=== PATIENT | female | born 1955 | race Caucasian/White ===

== ENCOUNTER → 2016-08-30 | Outpatient (CLI) | payer BC ==
--- NOTE | 2016-09-02 09:53 | MM ---
Reason for exam: screening (asymptomatic). Last mammogram was performed 1 year and 5 months ago. History: Patient is postmenopausal. Family history of premenopausal breast cancer in sister. Benign stereotactic core biopsy of the left breast, November 19, 1999. Core biopsy of the left breast. Physical Findings: A clinical breast exam by your physician is recommended on an annual basis and results should be correlated with mammographic findings. MG Screening Mammo w CAD Bilateral CC and MLO view(s) were taken. Prior study comparison: April 13, 2015, bilateral MG screening mammo w CAD. August 27, 2013, bilateral digital screening mammo w/CAD. The breast tissue is heterogeneously dense. This may lower the sensitivity of mammography. There is chronic nodularity bilaterally. No significant changes when compared with prior studies. ASSESSMENT: Benign, BI-RAD 2 RECOMMENDATION: Routine screening mammogram of both breasts in 1 year.
== END | disposition home or self-care (01) ==
LOC: RADMAMWWP 10:47
PROVIDERS: ATTEND Obstetrics & Gynecology
DX: Z12.31 Encounter for screening mammogram for malignant neoplasm of breast (principal); Z80.3 Family history of malignant neoplasm of breast

== ENCOUNTER 2017-06-27 08:28 | Day surgery (SDC) | payer BC ==
[2017-06-25 10:30] VITALS: BMI 21.2
[~2017-06-27 08:28] MED LIST: LACTATED RINGERS 1,000 ML IV SCH
[2017-06-27 08:43] VITALS: RESP 16; TEMP 98.6
[2017-06-27] MEDS ORDERED: LIDOCAINE 1% 20 ML VIAL (10MG/ML) FOR IV START INTRADERMA ONE (08:43)
[2017-06-27] MEDS ORDERED: PROPOFOL 10 MG/ML 20 ML VIAL IV ONE (09:21)
--- NOTE | 2017-06-27 09:39 | P.PCN ---
Date of Procedure: 06/27/17 Procedure(s) Performed: BRIEF HISTORY: Patient is a 61-year-old pleasant White female, scheduled for an elective colonoscopy as a part of screening for colon neoplasia. PROCEDURE PERFORMED: Colonoscopy. PREOPERATIVE DIAGNOSIS: Screening for colon cancer. IV sedation per Anesthesia. PROCEDURE: After informed consent was obtained, the patient, was brought into the endoscopy unit. IV sedation was administered by Anesthesia under continuous monitoring. Digital rectal examination was normal. Initially the Olympus CF- 160 flexible video colonoscope was then inserted in the rectum, gradually advanced into the cecum without any difficulty. Careful examination was performed as the scope was gradually being withdrawn. Ileocecal valve and the appendiceal orifice were visualized and appeared normal. Prep was excellent. Mucosa of the cecum, ascending colon, transverse colon, descending colon, sigmoid colon, and rectum appeared normal. Retroflexion was performed in the rectum and no lesions were seen. The patient tolerated the procedure well. IMPRESSION: Normal-appearing colon from rectum to cecum no evidence of colorectal neoplasia.. RECOMMENDATIONS: Findings of this examination were discussed with the patient as well as a family. she was advised to have a repeat screening colonoscopy in 10 years..
[2017-06-27 10:07] VITALS: BP 116/68; PULSE 59
== END 2017-06-27 10:28 | disposition home or self-care (01) ==
LOC: ORWHC2ENDO 08:28
PROVIDERS: ATTEND Internal Medicine Gastroenterology
DX: Z12.11 Encounter for screening for malignant neoplasm of colon (principal)
CPT/HCPCS: J2704; G0121

== ENCOUNTER → 2017-09-26 | Outpatient (CLI) | payer BC ==
[2017-09-26 21:40] LABS: Basophils % (A) 0 %; Eosinophils # (A) 0.1 k/uL (0-0.7); Eosinophils % (A) 1 %; HCT 41.3 % (34.0-46.0); HGB 13.2 gm/dL (11.4-16.0); Lymphocytes # (A) 1.2 k/uL (1.0-4.8); Lymphocytes % (A) 17 %; MCH 29.4 pg (25.0-35.0); MCV 91.9 fL (80.0-100.0); Mean Platelet Volume 8.1; Monocytes # (A) 0.4 k/uL (0-1.0); Monocytes % (A) 6 %; Neutrophils # (A) 5.3 k/uL (1.3-7.7); Neutrophils % (A) 75 %; Platelet Count 319 k/uL (150-450); RDW 12.8 % (11.5-15.5); WBC 7.1 k/uL (3.8-10.6)
[2017-09-26 21:46] LABS: ALT 40 U/L (9-52); AST 44 U/L (14-36); Albumin 4.7 g/dL (3.5-5.0); Alkaline Phosphatase 67 U/L (38-126); Amylase 76 U/L (30-110); Anion Gap 14 mmol/L; Blood Urea Nitrogen 16 mg/dL (7-17); Calcium 10.1 mg/dL (8.4-10.2); Carbon Dioxide 27 mmol/L (22-30); Chloride 97 mmol/L (98-107); Glucose 90 mg/dL (74-99); Lipase 285 U/L (23-300); Potassium 4.5 mmol/L (3.5-5.1); Sodium 138 mmol/L (137-145); Total Bilirubin 0.4 mg/dL (0.2-1.3); Total Protein 7.2 g/dL (6.3-8.2)
== END | disposition home or self-care (01) ==
LOC: MMGSC 15:14
PROVIDERS: ATTEND Family Medicine
DX: R19.7 Diarrhea, unspecified (principal); R10.9 Unspecified abdominal pain
CPT/HCPCS: 36415; 80053; 82150; 83690; 85025

== ENCOUNTER → 2018-03-09 | Outpatient (CLI) | payer BC ==
--- NOTE | 2018-03-10 09:49 | MM ---
Reason for exam: screening (asymptomatic). Last mammogram was performed 1 year and 6 months ago. History: Patient is postmenopausal. Family history of premenopausal breast cancer in sister. Benign stereotactic core biopsy of the left breast, November 19, 1999. Core biopsy of the left breast. Physical Findings: A clinical breast exam by your physician is recommended on an annual basis and results should be correlated with mammographic findings. MG 3D Screening Mammo W/Cad Bilateral CC and MLO view(s) were taken. Prior study comparison: August 30, 2016, bilateral MG screening mammo w CAD. April 13, 2015, bilateral MG screening mammo w CAD. The breast tissue is heterogeneously dense. This may lower the sensitivity of mammography. Finding #1: There is a 9mm equal architectural distortion in the outer quadrant of the left breast. Finding #2: There are typically benign calcifications in the right breast. Previous mammotome biopsy in the left breast. ASSESSMENT: Incomplete: need additional imaging evaluation, BI-RAD 0 RECOMMENDATION: Special view mammogram of the left breast. If lesion persists on supplemental views, image directed ultrasound is recommended. [facility] will attempt to contact patient to return for supplemental views and ultrasound if indicated.
== END | disposition home or self-care (01) ==
LOC: RADMAMWWP 10:43
PROVIDERS: ATTEND Obstetrics & Gynecology
DX: Z12.31 Encounter for screening mammogram for malignant neoplasm of breast (principal); Z80.3 Family history of malignant neoplasm of breast
CPT/HCPCS: 77063; 77067

== ENCOUNTER → 2018-03-11 | Outpatient (CLI) | payer BC ==
--- NOTE | 2018-03-11 11:49 | MM ---
Reason for exam: additional evaluation requested from abnormal screening. Last mammogram was performed less than 1 month ago. History: Patient is postmenopausal. Family history of premenopausal breast cancer in sister. Benign stereotactic core biopsy of the left breast, November 19, 1999. Core biopsy of the left breast. Physical Findings: Nurse did not find any significant physical abnormalities on exam. MG 3D Work Up W/Cad LT Spot compression CC and LM view(s) were taken of the left breast. Prior study comparison: March 09, 2018, bilateral MG 3d screening mammo w/cad. August 30, 2016, bilateral MG screening mammo w CAD. The breast tissue is heterogeneously dense. This may lower the sensitivity of mammography. Previous mammotome biopsy in the left breast. The questioned asymmetry laterally disperses on additional views. Chronic nodularity superiorly. These results were verbally communicated with the patient and result sheet given to the patient on 03/11/18. ASSESSMENT: Negative, BI-RAD 1 RECOMMENDATION: Return to routine screening mammogram schedule for both breasts.
== END | disposition home or self-care (01) ==
LOC: RADMAMWWP 10:48
PROVIDERS: ATTEND Obstetrics & Gynecology
DX: R92.8 Other abnormal and inconclusive findings on diagnostic imaging of breast (principal)
CPT/HCPCS: 77061; 77065

== ENCOUNTER → 2020-04-18 | Outpatient (CLI) | payer MEDICARE ==
--- NOTE | 2020-04-19 13:25 | MM ---
Reason for exam: screening (asymptomatic). Last mammogram was performed 2 years and 1 month ago. History: Patient is postmenopausal. Family history of premenopausal breast cancer in sister. Benign stereotactic core biopsy of the left breast, November 19, 1999. Core biopsy of the left breast. Physical Findings: A clinical breast exam by your physician is recommended on an annual basis and results should be correlated with mammographic findings. MG 3D Screening Mammo W/Cad Bilateral CC and MLO view(s) were taken. Prior study comparison: March 11, 2018, left breast MG 3d work up w/cad LT. March 09, 2018, bilateral MG 3d screening mammo w/cad. The breast tissue is heterogeneously dense. This may lower the sensitivity of mammography. Anterior superior subareolar left MLO asymmetric density unchanged from the 2018 exam. No significant changes when compared with prior studies. ASSESSMENT: Benign, BI-RAD 2 RECOMMENDATION: Routine screening mammogram of both breasts in 1 year.
== END | disposition home or self-care (01) ==
LOC: RADMAMWWP 15:42
PROVIDERS: ATTEND Family Medicine
DX: Z12.31 Encounter for screening mammogram for malignant neoplasm of breast (principal)
CPT/HCPCS: 77063; 77067

== ENCOUNTER → 2020-06-08 | Outpatient (CLI) | payer MEDICARE ==
--- NOTE | 2020-06-08 20:49 | BD ---
EXAMINATION TYPE: Axial Bone Density DATE OF EXAM: 06/08/2020 COMPARISON: 08/27/2013 CLINICAL HISTORY: Disorder of bone. Postmenopausal female. Height: 62.7 IN Weight: 130 LBS FRAX RISK QUESTIONS: History of Fracture in Adulthood: LT WRIST AGE 59; LT HAND AGE 59 RISK FACTORS HISTORY OF: History of Wrist Fracture: LT WRIST AGE 59 Active: YES Postmenopausal woman: AGE 52 MEDICATIONS: Additional Medications: MULTI VIT, CALCIUM, COD LIVER OIL, EXAM MEASUREMENTS: Bone mineral densitometry was performed using the [employer] System. Bone mineral density as measured about the Lumbar spine is: ----- L1-L4(G/cm2): 1.004 T Score Values are as follows: ----- L2: -1.6 ----- L3: -1.4 ----- L4: -1.6 ----- L1-L4: -1.5 Bone mineral density has: Decreased -2.3% since study of: 08/27/2013 Bone mineral density about the R hip (g/cm2): 0.744 Bone mineral density about the L hip (g/cm2): 0.800 T Score values are as follows: -----R Neck: -2.1 -----L Neck: -1.7 -----R Total: -2.2 -----L Total: -1.9 Bone mineral density has: Decreased -7.0% since study of: 08/27/2013 IMPRESSION: Osteopenia remains present (T Score between -2.5 and -1). Bone density decreased or diminished from p rior. There remains slightly increased risk of fracture and the patient may be considered for treatment. Re-Screen 2-5 years. NOTE: T-SCORE=SD OF THE YOUNG ADULT MEAN.
== END | disposition home or self-care (01) ==
LOC: RADBDWWP 07:12
PROVIDERS: ATTEND Family Medicine
DX: M85.88 Other specified disorders of bone density and structure, other site (principal)
CPT/HCPCS: 77080

== ENCOUNTER → 2021-09-19 | Outpatient (CLI) | payer MEDICARE, OTHER ==
--- NOTE | 2021-09-21 09:48 | MM ---
Reason for exam: screening (asymptomatic). Last mammogram was performed 1 year and 5 months ago. History: Patient is postmenopausal. Family history of breast cancer in daughter at age 35 and premenopausal breast cancer in sister. Benign stereotactic core biopsy of the left breast, November 19, 1999. Core biopsy of the left breast. Physical Findings: A clinical breast exam by your physician is recommended on an annual basis and results should be correlated with mammographic findings. MG 3D Screening Mammo W/Cad Bilateral CC and MLO view(s) were taken. Prior study comparison: April 18, 2020, bilateral MG 3d screening mammo w/cad. March 09, 2018, bilateral MG 3d screening mammo w/cad. Finding: There are grouped/clustered calcifications in the right breast. Previous mammotome biopsy in the left breast. ASSESSMENT: Incomplete: need additional imaging evaluation, BI-RAD 0 RECOMMENDATION: Special view mammogram of the right breast. [facility] will attempt to contact patient to return for supplemental views.
== END | disposition home or self-care (01) ==
LOC: RADMAMWWP 09:57
PROVIDERS: ATTEND Family Medicine
DX: Z12.31 Encounter for screening mammogram for malignant neoplasm of breast (principal); Z78.0 Asymptomatic menopausal state; Z80.3 Family history of malignant neoplasm of breast
CPT/HCPCS: 77063; 77067

== ENCOUNTER → 2021-09-25 | Outpatient (CLI) | payer MEDICARE, OTHER ==
--- NOTE | 2021-09-26 09:06 | MM ---
Reason for exam: additional evaluation requested from abnormal screening. Last mammogram was performed less than 1 month ago. History: Patient is postmenopausal. Family history of breast cancer in daughter at age 35 and premenopausal breast cancer in sister. Benign stereotactic core biopsy of the left breast, November 19, 1999. Core biopsy of the left breast. Physical Findings: A clinical breast exam by your physician is recommended on an annual basis and results should be correlated with mammographic findings. MG 3D Work Up W/Cad RT Spot compression CC, spot compression LM, and LM view(s) were taken of the right breast. Prior study comparison: September 19, 2021, bilateral MG 3d screening mammo w/cad. April 18, 2020, bilateral MG 3d screening mammo w/cad. Finding: There are intermediate concern, suspicious, fine, grouped/clustered calcifications in the middle position of the right breast. New finding since September 19, 2021 and April 18, 2020. Results were given to the patient verbally at the time of the exam. ASSESSMENT: Suspicious, BI-RAD 4 RECOMMENDATION: Stereotactic core biopsy of the right breast. (right breast calcifications) Called Dr. Gu's office with mammographic findings and has scheduled an appointment for the patient for 10/19/21 at 7:[address] Brush. Biopsy scheduled for 10/19/21 at 8:00. PRELIMINARY REPORT CALLED AND FAXED TO DR. BRUSH ON 09/26/21.
== END | disposition home or self-care (01) ==
LOC: RADMAMWWP 13:30
PROVIDERS: ATTEND Family Medicine
DX: R92.8 Other abnormal and inconclusive findings on diagnostic imaging of breast (principal)
CPT/HCPCS: 77065; G0279; 77061

== ENCOUNTER → 2021-10-19 | Day surgery (SDC) | payer MEDICARE, OTHER ==
[2021-10-19 07:12] VITALS: TEMP 98.2
--- NOTE | 2021-10-19 07:50 | P.GSHP ---
History of Present Illness H&P Date: 10/19/21 Chief Complaint: Abnormal right breast mammogram Valentine is a 65-year-old white female who underwent a bilateral screening mammogram on 1321. Some calcifications of concern were identified in the right breast and [place] [id number]. This revealed intermediate concern suspicious finding group cluster calcifications in the middle position of the right breast. Stereotactic core biopsy was recommended. She was seen in concert dictation for Dr. Gu. The patient has had a prior left breast are detected core biopsy in November 1999 which was benign. Patient has not noted any lumps masses or nodules of concern in either breast. She does not complain of any nipple discharge or skin changes. She has not had any recent trauma or infection of the breast. Caffiene: 2 cups coffee in am nicotine: none chocolate: several times/week BCP: none hormones: none Family history: Breast cancer and daughter at age 35; double mastectomy, only cancer one side; metastatic cancer Sister: Premenopausal breast cancer; double mastectomy only one side cancer father: brain cancer mother: stomach cancer Hormonal History: menarche: 13 , breast fed: yes, age at first : 18 menopause: 3o BCP:none hormone: none Surgical history: Right hand trigger finger repair Bone shaving on toe on the left foot Medical History: none Social history: Nicotine: Negative Alcohol: Occasional Drugs:none - Constitutional Constitutional: Denies chills, Denies fever - EENT Eyes: denies blurred vision, denies pain Ears: deny: decreased hearing, tinnitus Ears, nose, mouth and throat: Denies headache, Denies sore throat - Breasts Breasts: bilateral: as per HPI - Cardiovascular Cardiovascular: Denies chest pain, Denies shortness of breath - Respiratory Respiratory: Denies cough, Denies 7 - Gastrointestinal Gastrointestinal: Denies abdominal pain, Denies diarrhea, Denies nausea, Denies vomiting - Genitourinary (Female) Genitourinary: Denies dysuria, Denies hematuria - Menstruation Menstruation: Reports postmenopausal - Musculoskeletal Musculoskeletal: Denies myalgias - Integumentary Integumentary: Denies pruritus, Denies rash - Neurological Neurological: Denies numbness, Denies weakness - Psychiatric Psychiatric: Denies anxiety, Denies depression - Endocrine Endocrine: Denies fatigue, Denies weight change - Hematologic/Lymphatic Comment: none - Allergic/Immunologic Allergic/Immunologic: Reports as per HPI Past Medical History Additional Past Medical History / Comment(s): irregular bowel movements, History of Any Multi-Drug Resistant Organisms: None Reported Past Surgical History: Orthopedic Surgery Additional Past Surgical History / Comment(s): trigger finger rt middle finger, bone spur left great toe, Past Anesthesia/Blood Transfusion Reactions: Motion Sickness Past Psychological History: No Psychological Hx Reported Smoking Status: Former smoker Past Alcohol Use History: Occasional Past Drug Use History: None Reported - Past Family History Mother Family Medical History: Cancer Father Family Medical History: Cancer Daughter(s) Family Medical History: Cancer, Deep Vein Thrombosis (DVT) Medications and Allergies Home Medications Medication Instructions Recorded Confirmed Type No Known Home Medications 10/19/21 10/19/21 History Allergies Allergy/AdvReac Type Severity Reaction Status Date / Time No Known Allergies Allergy Verified 10/19/21 07:03 Surgical - Exam Vital Signs Temp Pulse Resp BP 98.2 F 74 13 134/81 10/19/21 07:04 10/19/21 07:04 10/19/21 07:04 10/19/21 07:04 BMI 22.7 - General no distress - Eyes normal ocular movement - Neck trachea midline - Respiratory normal respiratory effort, clear to auscultation - Cardiovascular Rhythm: regular Heart Sounds: normal: S1, S2 - Abdomen Abdomen: soft - Integumentary normal turgor - Neurologic no disoriented, no combative - Musculoskeletal normal gait - Psychiatric oriented to time, oriented to person, oriented to place, speech is normal, memory intact Breast examination: BRA: 34B inspection: Bilateral grade 2 ptosis Palpation: Right breast: Multi-positional exam dense breast no dominant masses or nodules of concern, fibrocystic changes Right axilla: No adenopathy of concern Left breast: Multi-positional exam dense breast fibrocystic changes no dominant masses or nodules of concern Left axilla: No adenopathy of concern Results Mammogram reviewed with radiology Assessment and Plan Assessment: Impression: Microcalcifications of concern right breast Fibrocystic breast changes Positive family history of breast cancer Plan: Stereotactic core biopsy right breast Follow-up after stereotactic core biopsy Risk and benefits of the procedure discussed with the patient and her . Risks include but are not limited to bleeding, infection, reaction to the anesthetic. Additionally if the area of concern cannot be visualized that the procedure would most likely be aborted. The patient understands and wishes to proceed. Cc: Dr. Gu
--- NOTE | 2021-10-19 08:41 | P.PCN ---
Date of Procedure: 10/19/21 Preoperative Diagnosis: Abnormal right breast mammogram Postoperative Diagnosis: Same/microcalcifications mid right breast Procedure(s) Performed: Stereotactic core biopsy right breast Anesthesia: local Surgeon: Giuliana Brush Pathology: other (Breast tissue/radiograph reveals microcalcifications of concern are present) Condition: stable Disposition: same day Indications for Procedure: Microcalcifications of concern mid right breast Operative Findings: Radiographic specimen reveals microcalcifications of concern are present Description of Procedure: The patient is a 65-year-old white female who on a routine screening mammogram was noted to have microcalcifications of concern in the midportion of her right breast. Diagnostic mammogram confirm these. Stereotactic core biopsy was recommended. Risks and benefits of the procedure were discussed with the patient. Alternatives were also discussed. Alternatives were watchful waiting a resection in the operating room and neither was recommended. After risk and benefits were discussed the patient wished to proceed with the procedure. The patient was taken to stereotactic core biopsy wound. She was positioned prone on the lo-rad table. A loss prevention representative film was obtained. The area of concern was identified. The lesion was targeted. A lateral to medial approach was utilized. The breast was prepped using Betadine. 25 mL of 1% lidocaine were used to anesthetize the area of concern. A 9-gauge vacuum-assisted core rotating biopsy needle was driven to the correct coordinates. Prefire films were obtained. The needle was noted to be in the correct location. The needle was fired. Post fire films were obtained and the needle was noted to be in the correct location. 14 core specimens were obtained. Radiograph of the specimens revealed the microcalcifications of concern had been obtained. The area was lavaged. After we were assured that hemostasis was attained a secure andreas Top Hat clip was placed. Radiograph post procedure revealed the clip to be in the correct location. The patient tolerated the procedure in stable condition. The specimen was sent to pathology. The patient will follow-up with Dr. Bianchi next week.
[2021-10-19 08:48] VITALS: BP 130/81; PULSE 57; RESP 12
--- NOTE | 2021-10-19 10:08 | MM ---
The patient is a 65-year-old white female who on a routine screening mammogram was noted to have microcalcifications of concern in the midportion of her right breast. Diagnostic mammogram confirm these. Stereotactic core biopsy was recommended. Risks and benefits of the procedure were discussed with the patient. Alternatives were also discussed. Alternatives were watchful waiting a resection in the operating room and neither was recommended. After risk and benefits were discussed the patient wished to proceed with the procedure. The patient was taken to stereotactic core biopsy room. She was positioned prone on the lo-rad table. A facilities mechanical design engineer film was obtained. The area of concern was identified. The lesion was targeted. A lateral to medial approach was utilized. The breast was prepped using Betadine. 25 mL of 1% lidocaine were used to anesthetize the area of concern. A 9-gauge vacuum-assisted core rotating biopsy needle was driven to the correct coordinates. Prefire films were obtained. The needle was noted to be in the correct location. The needle was fired. Post fire films were obtained and the needle was noted to be in the correct location. 14 core specimens were obtained. Radiograph of the specimens revealed the microcalcifications of concern had been obtained. The area was lavaged. After we were assured that hemostasis was attained a secure andreas Top Hat clip was placed. Radiograph post procedure revealed the clip to be in the correct location. The patient tolerated the procedure in stable condition. The specimen was sent to pathology. The patient will follow-up with Dr. Bianchi next week. NAKUL
== END ==
LOC: RADMAMWWP 06:45
PROVIDERS: ATTEND Surgery
DX: N60.11 Diffuse cystic mastopathy of right breast (principal); N60.81 Other benign mammary dysplasias of right breast; Z80.3 Family history of malignant neoplasm of breast; Z87.891 Personal history of nicotine dependence
CPT/HCPCS: 19081; 88305; A4648; J2001

== ENCOUNTER → 2021-10-19 | Outpatient (CLI) | payer MEDICARE, OTHER ==
[2021-10-19 07:40] VITALS: BP 126/82; PULSE 63; RESP 17; TEMP 98.7
== END ==
LOC: WWCWWP 06:43
PROVIDERS: ATTEND Surgery
DX: Z53.9 Procedure and treatment not carried out, unspecified reason (principal)

== ENCOUNTER → 2022-04-23 | Outpatient (CLI) | payer MEDICARE, OTHER ==
--- NOTE | 2022-04-23 09:52 | MM ---
Reason for Exam: Follow-up at short interval from prior study. Last screening mammogram was performed 7 month(s) ago. Patient History: Menarche at age 11. First Full-Term at age 18. Postmenopausal. Patient has history of breast feeding. Core Biopsy on the Left side. 10/19/2021, Benign MG stereo VAD BX RT on the right side. 11/19/1999, Benign Stereotactic Core Biopsy on the left side. Sister had breast cancer. Daughter had breast cancer, age 35. Risk Values: Brianna 5 year model risk: 10.2%. NCI Lifetime model risk: 29.4%. Prior Study Comparison: 07/22/2011 Bilateral Screening Mammogram, [facility]. 08/27/2013 Bilateral Screening Mammogram, [facility]. 04/13/2015 Bilateral Screening Mammogram, [facility]. 08/30/2016 Bilateral Screening Mammogram, [facility]. 03/09/2018 Bilateral Screening Mammogram, [facility]. 03/11/2018 Left Diagnostic Mammogram, [facility]. 04/18/2020 Bilateral Screening Mammogram, [facility]. 09/19/2021 Bilateral Screening Mammogram, [facility]. 09/25/2021 Right Diagnostic Mammogram, [facility]. Tissue Density: Right: The breast tissue is heterogeneously dense. This may lower the sensitivity of mammography. Findings: Analyzed By CAD. No new suspicious mass or worrisome cluster microcalcifications within the right breast. Benign-appearing round calcifications demonstrated. Biopsy clip demonstrated within the right breast. Overall Assessment: Benign, BI-RAD 2 Management: Screening Mammogram of both breasts in 6 months. A clinical breast exam by your physician is recommended on an annual basis and results should be correlated with mammographic findings. This exam should not preclude additional follow-up of suspicious palpable abnormalities. Results were given to the patient verbally at the time of exam. Electronically signed and approved by: Andrea Khan D.O.
== END | disposition home or self-care (01) ==
LOC: RADMAMWWP 09:23
PROVIDERS: ATTEND Surgery
DX: R92.8 Other abnormal and inconclusive findings on diagnostic imaging of breast (principal); Z78.0 Asymptomatic menopausal state; Z80.3 Family history of malignant neoplasm of breast
CPT/HCPCS: 77065; G0279; 77061

== ENCOUNTER → 2022-04-26 | Outpatient (CLI) | payer MEDICARE, OTHER ==
[2022-04-26 12:53] VITALS: BP 129/69; PULSE 58; RESP 16; TEMP 97.8
--- NOTE | 2022-04-26 13:27 | P.PN ---
Subjective Progress Note Date: 04/26/22 Principal diagnosis: fibrocystic breast changes Valentine is a 65-year-old white female who underwent a bilateral screening mammogram on 1321. Some calcifications of concern were identified in the right breast and she underwent a right diagnostic mammogram [place] [id number]. This r evealed intermediate concern suspicious finding group cluster calcifications in the middle position of the right breast. Stereotactic core biopsy was recommended. She was seen in concert dictation for Dr. Gu. The patient has had a prior left breast are detected core biopsy in November 1999 which was benign. Patient has not noted any lumps masses or nodules of concern in either [address] She does not complain of any nipple discharge or skin changes. She has not had any recent trauma or infection of the breast. 04-26-22 The patient had a stero-biopsy on 10-19-21 which was benign concordant. She had a repeat right breast mammogram on 04-23-22 which was BIRAD 2. Set complaining of any new lumps masses or nodules of concern in either breast. Caffiene: 2 cups coffee in am nicotine: none chocolate: several times/week BCP: none hormones: none Family history: Breast cancer and daughter at age 35; double mastectomy, only cancer one side; metastatic cancer Sister: Premenopausal breast cancer; double mastectomy only one side cancer father: brain cancer mother: stomach cancer Hormonal History: menarche: 13 , breast fed: yes, age at first : 18 menopause: 5o BCP:none hormone: none Surgical history: Right hand trigger finger repair Bone shaving on toe on the left foot Medical History: none Social history: Nicotine: Negative Alcohol: Occasional Drugs:none - Constitutional Constitutional: Denies chills, Denies fever - EENT Eyes: denies blurred vision, denies pain Ears: deny: decreased hearing, tinnitus Ears, nose, mouth and throat: Denies headache, Denies sore throat - Breasts Breasts: bilateral: as per HPI - Cardiovascular Cardiovascular: Denies chest pain, Denies shortness of breath - Respiratory Respiratory: Denies cough, Denies 7 - Gastrointestinal Gastrointestinal: Denies abdominal pain, Denies diarrhea, Denies nausea, Denies vomiting - Genitourinary (Female) Genitourinary: Denies dysuria, Denies hematuria - Menstruation Menstruation: Reports postmenopausal - Musculoskeletal Musculoskeletal: Denies myalgias - Integumentary Integumentary: Denies pruritus, Denies rash - Neurological Neurological: Denies numbness, Denies weakness - Psychiatric Psychiatric: Denies anxiety, Denies depression - Endocrine Endocrine: Denies fatigue, Denies weight change - Hematologic/Lymphatic Comment: none - Allergic/Immunologic Allergic/Immunologic: Reports as per HPI Past Medical History Additional Past Medical History / Comment(s): irregular bowel movements, History of Any Multi-Drug Resistant Organisms: None Reported Past Surgical History: Orthopedic Surgery Additional Past Surgical History / Comment(s): trigger finger rt middle finger, bone spur left great toe, Past Anesthesia/Blood Transfusion Reactions: Motion Sickness Past Psychological History: No Psychological Hx Reported Smoking Status: Former smoker Past Alcohol Use History: Occasional Past Drug Use History: None Reported - Past Family History Mother Family Medical History: Cancer Father Family Medical History: Cancer Daughter(s) Family Medical History: Cancer, Deep Vein Thrombosis (DVT) Medications and Allergies Home Medications Medication Instructions Recorded Confirmed Type No Known Home Medications 10/19/21 10/19/21 History Allergies Allergy/AdvReac Type Severity Reaction Status Date / Time No Known Allergies Allergy Verified 10/19/21 07:03 Objective - Vital Signs Vital signs: Vital Signs Temp 97.8 F 04/26/22 12:50 Pulse 58 L 04/26/22 12:50 Resp 16 04/26/22 12:50 BP 129/69 04/26/22 12:50 Pulse Ox 100 04/26/22 12:50 FiO2 Intake & Output 04/25/22 04/26/22 04/26/22 18:59 06:59 18:59 Weight 58.967 kg - Constitutional General appearance: Present: cooperative - EENT Eyes: Present: EOMI ENT: Present: hearing grossly normal - Neck Neck: Present: normal ROM - Respiratory Respiratory: bilateral: CTA - Cardiovascular Rhythm: regular Heart sounds: normal: S1, S2 - Integumentary Integumentary: Present: normal turgor - Musculoskeletal Musculoskeletal: Present: gait normal - Psychiatric Psychiatric: Present: A&O x's 3, appropriate affect, intact judgment & insight - Additional findings Additional findings: Breast examination: BRA: 34B inspection: Bilateral grade 2 ptosis Palpation: Right breast: Multi-positional exam dense breast no dominant masses or nodules of concern, fibrocystic changes Right axilla: No adenopathy of concern Left breast: Multi-positional exam dense breast fibrocystic changes no dominant masses or nodules of concern Left axilla: No adenopathy of concern Assessment and Plan Assessment: Impression: Fibrocystic breast changes Brianna risk evaluation states five-year risk is 10.2%; discussed chemoprevention risk reduction at this time the patient has declined Additionally secondary to family history of sister and daughter with breast cancer will discuss genetic testing and at this time the patient would like to just be followed conservatively Plan: Bilateral mammogram in 6 months with physician exam at that time If patient notes anything of concern she will call us sooner CC: DR. Gu
== END | disposition home or self-care (01) ==
LOC: WWCWWP 12:36
PROVIDERS: ATTEND Surgery
DX: Z53.9 Procedure and treatment not carried out, unspecified reason (principal)

== ENCOUNTER → 2022-10-21 | Outpatient (CLI) | payer MEDICARE, OTHER ==
--- NOTE | 2022-10-21 10:38 | MM ---
Reason for Exam: Follow-up at short interval from prior study. Last mammogram was performed 1 year(s) and 1 month(s) ago. Patient History: Menarche at age 11. First Full-Term at age 18. Postmenopausal. Patient has history of breast feeding. Core Biopsy on the Left side. 10/19/2021, Benign MG stereo VAD BX RT on the right side. 11/19/1999, Benign Stereotactic Core Biopsy on the left side. Sister had breast cancer. Daughter had breast cancer, age 35. Risk Values: Brianna 5 year model risk: 10.2%. NCI Lifetime model risk: 29.4%. Prior Study Comparison: 04/13/2015 Bilateral Screening Mammogram, [facility]. 08/30/2016 Bilateral Screening Mammogram, [facility]. 03/09/2018 Bilateral Screening Mammogram, [facility]. 03/11/2018 Left Diagnostic Mammogram, [facility]. 04/18/2020 Bilateral Screening Mammogram, [facility]. 09/19/2021 Bilateral Screening Mammogram, [facility]. 09/25/2021 Right Diagnostic Mammogram, [facility]. 04/23/2022 Right MG 3D diag mammo w/cad RT, [facility]. Tissue Density: The breast tissue is heterogeneously dense. This may lower the sensitivity of mammography. Findings: Analyzed By CAD. There is symmetrical and stable. Bilateral core markers are present. No suspicious groups of microcalcifications, spiculated or lobular masses, architectural distortion or other secondary signs of malignancy are mammographically apparent. Overall Assessment: Benign, BI-RAD 2 Management: Screening Mammogram of both breasts in 1 year. A negative mammogram report should not preclude additional follow up of suspicious palpable abnormalities. Patient should continue monthly self breast exam. A clinical breast exam by your physician is recommended on an annual basis and results should be correlated with mammographic findings. Electronically signed and approved by: Jun Mosley D.O. Radiologis
== END | disposition home or self-care (01) ==
LOC: RADMAMWWP 09:36
PROVIDERS: ATTEND Surgery
DX: R92.8 Other abnormal and inconclusive findings on diagnostic imaging of breast (principal); Z78.0 Asymptomatic menopausal state; Z80.3 Family history of malignant neoplasm of breast
CPT/HCPCS: 77066; G0279; 77062

== ENCOUNTER → 2022-10-31 | Outpatient (CLI) | payer MEDICARE, OTHER ==
[2022-10-31 10:58] VITALS: BP 173/83; PULSE 73; RESP 16; TEMP 97.8
--- NOTE | 2022-10-31 11:16 | P.PN ---
Subjective Progress Note Date: 10/31/22 Principal diagnosis: fibrocystic breast changes fibrocystic breast changes Valentine is a 66-year-old white female who underwent a bilateral screening mammogram on 1321. Some calcifications of concern were identified in the right breast and she underwent a right diagnostic mammogram on . This revealed intermediate concern suspicious finding group cluster calcifications in the middle position of the right breast. Stereotactic core biopsy was recommended. The patient has had a prior left breast stero tactic core biopsy in November 1999 which was benign. The patient had a stero-biopsy on 10-19-21 which was benign concordant. She had a repeat right breast mammogram on 04-23-22 which was BIRAD 2. She is not complaining of any new lumps masses or nodules of concern in either breast. Bilateral mammogram on 10-21-22 BIRAD 2 Brianna Risk : 10.2 % at 5 years life time risk: 29.4% Discussed chemoprevention and I have given her the option of seeing a medical oncologist to discuss this as well. At this time the patient has declined. Additionally I discussed her lifetime risk of 29.4% and the possibility of getting yearly breast MRIs. Again at this time she has declined. Her daughter had genetic testing and was (-). She is not aware of her sister having genetic testing. Caffiene: 2 cups coffee in am nicotine: none chocolate: several times/week BCP: none hormones: none Family history: Breast cancer: daughter at age 35; double mastectomy, only cancer one side; metastatic cancer Sister: Premenopausal breast cancer; double mastectomy only one side cancer father: brain cancer mother: stomach cancer Hormonal History: menarche: 13 , breast fed: yes, age at first : 18 menopause: 3o BCP:none hormone: none Surgical history: Right hand trigger finger repair Bone shaving on toe on the left foot Medical History: none Social history: Nicotine: Negative Alcohol: Occasional Drugs:none - Constitutional Constitutional: Denies chills, Denies fever - EENT Eyes: denies blurred vision, denies pain Ears: deny: decreased hearing, tinnitus Ears, nose, mouth and throat: Denies headache, Denies sore throat - Breasts Breasts: bilateral: as per HPI - Cardiovascular Cardiovascular: Denies chest pain, Denies shortness of breath - Respiratory Respiratory: Denies cough - Gastrointestinal Gastrointestinal: Denies abdominal pain, Denies diarrhea, Denies nausea, Denies vomiting - Genitourinary (Female) Genitourinary: Denies dysuria, Denies hematuria - Menstruation Menstruation: Reports postmenopausal - Musculoskeletal Musculoskeletal: Denies myalgias - Integumentary Integumentary: Denies pruritus, Denies rash - Neurological Neurological: Denies numbness, Denies weakness - Psychiatric Psychiatric: Denies anxiety, Denies depression - Endocrine Endocrine: Denies fatigue, Denies weight change - Hematologic/Lymphatic Comment: none - Allergic/Immunologic Allergic/Immunologic: Reports as per HPI Past Medical History Additional Past Medical History / Comment(s): irregular bowel movements, History of Any Multi-Drug Resistant Organisms: None Reported Past Surgical History: Orthopedic Surgery Additional Past Surgical History / Comment(s): trigger finger rt middle finger, bone spur left great toe, Past Anesthesia/Blood Transfusion Reactions: Motion Sickness Past Psychological History: No Psychological Hx Reported Smoking Status: Former smoker Past Alcohol Use History: Occasional Past Drug Use History: None Reported - Past Family History Mother Family Medical History: Cancer Father Family Medical History: Cancer Daughter(s) Family Medical History: Cancer, Deep Vein Thrombosis (DVT) Medications and Allergies Home Medications Medication Instructions Recorded Confirmed Type No Known Home Medications 10/19/21 10/19/21 History Allergies Allergy/AdvReac Type Severity Reaction Status Date / Time No Known Allergies Allergy Verified 10/19/21 07:03 Objective - Vital Signs Vital signs: Vital Signs Temp 97.8 F 10/31/22 10:42 Pulse 73 10/31/22 10:42 Resp 16 10/31/22 10:42 BP 173/83 10/31/22 10:42 Pulse Ox 99 10/31/22 10:42 FiO2 Intake & Output 10/30/22 10/31/22 10/31/22 18:59 06:59 18:59 Weight 59.874 kg - Constitutional General appearance: Present: cooperative - EENT Eyes: Present: EOMI ENT: Present: hearing grossly normal - Neck Neck: Present: normal ROM - Respiratory Respiratory: bilateral: CTA - Cardiovascular Rhythm: regular Heart sounds: normal: S1, S2 - Gastrointestinal General gastrointestinal: Present: soft - Integumentary Integumentary: Present: normal turgor - Musculoskeletal Musculoskeletal: Present: gait normal - Psychiatric Psychiatric: Present: A&O x's 3, appropriate affect, intact judgment & insight - Additional findings Additional findings: Breast examination: BRA: 34B inspection: Bilateral grade 3 ptosis Palpation: Right breast: Multi-positional exam dense breast no dominant masses or nodules of concern, fibrocystic changes Right axilla: No adenopathy of concern Left breast: Multi-positional exam dense breast fibrocystic changes no dominant masses or nodules of concern Left axilla: No adenopathy of concern Assessment and Plan Assessment: Impression: Fibrocystic breast changes Rbianna risk evaluation states five-year risk is 10.2%; discussed chemoprevention risk reduction at this time the patient has declined Patient has declined MRI secondary to high lifetime risk of breast cancer Plan: Bilateral mammogram in 12 months with physician exam at that time Physician exam in 6 months for close surveillance If patient notes anything of concern she will call us sooner CC: DR. Gu Additional CC's: Rayna Gu
== END ==
LOC: WWCWWP 10:30
PROVIDERS: ATTEND Surgery
DX: N60.11 Diffuse cystic mastopathy of right breast (principal); Z80.3 Family history of malignant neoplasm of breast; Z87.891 Personal history of nicotine dependence

== ENCOUNTER 2022-12-23 09:55 | Emergency (ER) | payer MEDICARE, OTHER ==
[2022-12-23 10:18] VITALS: RESP 18; TEMP 98
[2022-12-23] MEDS ORDERED: diphenhydrAMINE 50 MG/ML 1 ML VIAL IVP STA (10:36)
[2022-12-23] MEDS ORDERED: FAMOTIDINE 20 MG/2 ML VIAL IV STA (10:36)
[2022-12-23] MEDS ORDERED: SODIUM CHLORIDE 0.9% 500 ML 500 ML IV ONE (10:37)
[2022-12-23] MEDS ORDERED: methylPREDNISolone SOD SUCCI 125 MG/2 ML VIAL IV STA (10:37)
[2022-12-23 10:52] LABS: Basophils % (A) 1 %; Eosinophils # (A) 0.1 k/uL (0-0.7); Eosinophils % (A) 2 %; HGB 14.9 gm/dL (11.4-16.0); Lymphocytes % (A) 14 %; MCH 30.3 pg (25.0-35.0); MCHC 31.8 g/dL (31.0-37.0); MCV 95.5 fL (80.0-100.0); Mean Platelet Volume 7.4; Monocytes # (A) 0.4 k/uL (0-1.0); Monocytes % (A) 6 %; Neutrophils # (A) 5.3 k/uL (1.3-7.7); Neutrophils % (A) 77 %; Platelet Count 300 k/uL (150-450); RBC 4.92 m/uL (3.80-5.40); RDW 13.4 % (11.5-15.5); WBC 6.9 k/uL (3.8-10.6)
[2022-12-23 11:15] LABS: ALT 29 U/L (4-34); African American GFR (CKD) >90 (>60 ml/min/1.73 sqM); Albumin 4.8 g/dL (3.5-5.0); Anion Gap 9 mmol/L; Blood Urea Nitrogen 14 mg/dL (7-17); Calcium 9.4 mg/dL (8.4-10.2); Carbon Dioxide 26 mmol/L (22-30); Chloride 96 mmol/L (98-107); Glucose 90 mg/dL (74-99); Non-African American GFR(CKD) 89 (>60 ml/min/1.73 sqM); Sodium 131 mmol/L (137-145); Total Bilirubin 1.1 mg/dL (0.2-1.3)
[2022-12-23 11:18] LABS: AST 40 U/L (14-36); Alkaline Phosphatase 51 U/L (38-126); Potassium 4.8 mmol/L (3.5-5.1)
--- NOTE | 2022-12-23 12:26 | ED ---
General Adult HPI - General Chief complaint: Skin/Abscess/Foreign Body Stated complaint: bee sting R arm Time Seen by Provider: 12/23/22 10:22 Source: patient, family, RN notes reviewed Mode of arrival: ambulatory Limitations: no limitations - History of Present Illness Initial comments: 67-year-old female with no significant past medical history presents to the emergency department with a chief complaint of right arm swelling. Patient reports that she got stung by me on the dorsal aspect of her hand last night. She reports that she went to bed and woke up with generalized swelling to her forearm and into her elbow. She has not taken Benadryl or steroids prior to arrival. She denies any pain. Denies anticoagulant use, shortness of breath, dyspmea, chest pain. - Related Data Previous Rx's Medication Instructions Recorded Famotidine [Pepcid] 40 mg PO DAILY #7 tablet 12/23/22 diphenhydrAMINE [Benadryl] 50 mg PO QID PRN #20 capsule 12/23/22 predniSONE 50 mg PO DAILY #5 tab 12/23/22 Allergies Allergy/AdvReac Type Severity Reaction Status Date / Time bee venom protein (honey bee) Allergy Swelling Verified 12/23/22 10:18 Review of Systems ROS Statement: Those systems with pertinent positive or pertinent negative responses have been documented in the HPI. ROS Other: All systems not noted in ROS Statement are negative. Past Medical History Additional Past Medical History / Comment(s): irregular bowel movements, History of Any Multi-Drug Resistant Organisms: None Reported Past Surgical History: Orthopedic Surgery Additional Past Surgical History / Comment(s): trigger finger rt middle finger, bone spur left great toe, Past Anesthesia/Blood Transfusion Reactions: Motion Sickness Past Psychological History: No Psychological Hx Reported Smoking Status: Never smoker Past Alcohol Use History: Occasional Past Drug Use History: None Reported - Past Family History Mother Family Medical History: Cancer Father Family Medical History: Cancer Daughter(s) Family Medical History: Cancer, Deep Vein Thrombosis (DVT) General Exam - General Exam Comments Initial Comments: General: Alert, in no acute distress Head: atraumatic normocephalic. Eyes PERRL, EOMI intact, mucous membranes moist Respiratory: Lungs clear to auscultation bilaterally Cardiovascular: Rate regular rate and rhythm Abdominal: Soft without guarding or rebound Extremities: Normal inspection with full range of motion and normal capillary refill, right upper extremity diffuse swelling, although) and full range of motion 2+ radial pulses distal neurovascularly intact Neuroogic: alert and oriented 3, CN II-XII intact, able to ambulate with steady gait Skin: warm dry and intact with normal color Limitations: no limitations Course Vital Signs 12/23/22 12/23/22 10:15 12:41 Temperature 98 F Pulse Rate 62 69 Respiratory 18 18 Rate Blood Pressure 129/76 145/85 O2 Sat by Pulse 98 99 Oximetry - Reevaluation(s) Reevaluation #1: 12/23/22 12:00 patient reevaluated. On laboratory results. Additional imaging ordered Medical Decision Making - Medical Decision Making Was pt. sent in by a medical professional or institution (, PA, CHARGER TESTER, urgent care, hospital, or senior living...) When possible be specific @ -[No] Did you speak to anyone other than the patient for history (EMS, parent, family, police, friend...)? What history was obtained from this source @ -[No] Did you review nursing and triage notes (agree or disagree)? Why? @ -[I reviewed and agree with nursing and triage notes] Were old charts reviewed (outside hosp., previous admission, EMS record, old EKG, old radiological studies, urgent care reports/EKG's, senior living records)? Report findings @ -[No old charts were reviewed] Differential Diagnosis (chest pain, altered mental status, abdominal pain women, abdominal pain men, vaginal bleeding, weakness, fever, dyspnea, syncope, headache, dizziness, GI bleed, back pain, seizure, CVA, palpatations, mental health, musculoskeletal)? @ -[not applicable] EKG interpreted by me (3pts min.). @ -[As above] X-rays interpreted by me (1pt min.). @ -[None done] CT interpreted by me (1pt min.). @ -[None done] U/S interpreted by me (1pt. min.). @ -Right upper arm extremity negative for any evidence of DVT What testing was considered but not performed or refused? (CT, X-rays, U/S, labs)? Why? @ -[None] What meds were considered but not given or refused? Why? @ -[None] Did you discuss the management of the patient with other professionals (professionals i.e. , PA, CHARGER TESTER, lab, RT, psych nurse, director social welfare, bricklayer, teacher, correctional program officer, piano case and bench assembler)? Give summary @ -[No] Was smoking cessation discussed for >3mins.? @ -[No] Was critical care preformed (if so, how long)? @ -[No] Were there social determinants of health that impacted care today? How? (Homelessness, low income, unemployed, alcoholism, drug addiction, transportation, low edu. Level, literacy, decrease access to med. care, retirement, rehab)? @ -[No] Was there de-escalation of care discussed even if they declined (Discuss DNR or withdrawal of care, Hospice)? DNR status @ -[No] What co-morbidities impacted this encounter? (DM, HTN, Smoking, COPD, CAD, Cancer, CVA, ARF, Chemo, Hep., AIDS, mental health diagnosis, sleep apnea, morbid obesity)? @ -[None] Was patient admitted / discharged? Hospital course, mention meds given and route, prescriptions, significant lab abnormalities, going to OR and other pertinent info. @ -Discharged. This is a pleasant 67 year-old male who presents to the emergency department with a chief complaint of right arm swelling. . Patient will thorough history and physical exam performed on the ED. Physical exam is essentially unremarkable. Heart rate regular rate and rhythm, lungs clear to auscultation bilaterally, abdomen soft with generalized tenderness. There are no focal neuro deficits noted upon exam. Patient able to move all extremities freely. Right upper extremity with diffuse generalized swelling to elbow 2+ radial pulses. Patient lab work and imaging performed is essentially unremarkable. Discussed results in detail with the patient verbalized understanding all questions were addressed. She was given solumedrol, benadryl, and pepcid 1 L of IV fluids with symptomatic relief on the emergency department. He is agreeable with the plan for discharge home with return precautions discussed. Patient will be discharged home in stable condition. Patient given a prescription for Bentyl. Case discussed with FRANKLIN Peters who agrees with plan of care Undiagnosed new problem with uncertain prognosis? @ -[No] Drug Therapy requiring intensive monitoring for toxicity (Heparin, Nitro, Insulin, Cardizem)? @ -[No] Were any procedures done? @ -[No] Diagnosis/symptom? @ -R Arm Swelling - Hx of Bee Sting Acute, or Chronic, or Acute on Chronic? @ -Acute Uncomplicated (without systemic symptoms) or Complicated (systemic symptoms)? @ -Uncomplicated Side effects of treatment? @ -[No] Exacerbation, Progression, or Severe Exacerbation? @ -[No] Poses a threat to life or bodily function? How? (Chest pain, [place], [place], pneumonia, PE, COPD, DKA, ARF, appy, cholecystitis, CVA, Diverticulitis, Homicidal, Suicidal, threat to staff... and all critical care pts) @ -Low likelihood - Lab Data Result diagrams: 12/23/22 10:41 12/23/22 10:41 Lab Results 12/23/22 12/23/22 Range/Units 10:41 10:41 WBC 6.9 (3.8-10.6) k/uL RBC 4.92 (3.80-5.40) m/uL Hgb 14.9 (11.4-16.0) gm/dL Hct 47.0 H (34.0-46.0) % MCV 95.5 (80.0-100.0) fL MCH 30.3 (25.0-35.0) pg MCHC 31.8 (31.0-37.0) g/dL RDW 13.4 (11.5-15.5) % Plt Count 300 (150-450) k/uL MPV 7.4 Neutrophils % 77 % Lymphocytes % 14 % Monocytes % 6 % Eosinophils % 2 % Basophils % 1 % Neutrophils # 5.3 (1.3-7.7) k/uL Lymphocytes # 1.0 (1.0-4.8) k/uL Monocytes # 0.4 (0-1.0) k/uL Eosinophils # 0.1 (0-0.7) k/uL Basophils # 0.0 (0-0.2) k/uL Sodium 131 L (137-145) mmol/L Potassium 4.8 (3.5-5.1) mmol/L Chloride 96 L (98-107) mmol/L Carbon Dioxide 26 (22-30) mmol/L Anion Gap 9 mmol/L BUN 14 (7-17) mg/dL Creatinine 0.70 (0.52-1.04) mg/dL Est GFR (CKD-EPI)AfAm >90 (>60 ml/min/1.73 sqM) Est GFR (CKD-EPI)NonAf 89 (>60 ml/min/1.73 sqM) Glucose 90 (74-99) mg/dL Calcium 9.4 (8.4-10.2) mg/dL Total Bilirubin 1.1 (0.2-1.3) mg/dL AST 40 H (14-36) U/L ALT 29 (4-34) U/L Alkaline Phosphatase 51 (38-126) U/L Total Protein 8.0 (6.3-8.2) g/dL Albumin 4.8 (3.5-5.0) g/dL Disposition Clinical Impression: Bee sting allergy, Localized swelling of right upper extremity Disposition: HOME SELF-CARE Condition: Stable Instructions (If sedation given, give patient instructions): Cold Compress or Soak (ED) Additional Instructions: Lucas take medications as prescribed Please return to the ER if worsening symptoms of shortness of breath, dyspnea or cough develop Prescriptions: diphenhydrAMINE [Benadryl] 50 mg PO QID PRN #20 capsule PRN Reason: Allergic Reaction Famotidine [Pepcid] 40 mg PO DAILY #7 tablet predniSONE 50 mg PO DAILY #5 tab Is patient prescribed a controlled substance at d/c from ED?: No Referrals: Rayna Gu MD [Primary Care Provider] - 1-2 days Time of Disposition: 13:07
[2022-12-23 12:44] VITALS: BP 145/85; PULSE 69
--- NOTE | 2022-12-23 12:55 | US ---
EXAMINATION TYPE: US venous doppler duplex UE RT DATE OF EXAM: 12/23/2022 COMPARISON: NONE CLINICAL INDICATION: Female, 67 years old with history of R arm swelling; Right arm swelling from bee sting SIDE PERFORMED: Right Right Arm: Appears negative for DVT IMPRESSION: Grayscale, color doppler, spectral doppler imaging performed of the deep veins of the upper extremiti es. There is normal flow, compressibility and vascular waveforms.
== END 2022-12-23 13:56 | disposition home or self-care (01) ==
LOC: EC 09:55
DX: T63.441A Toxic effect of venom of bees, accidental (unintentional), initial encounter (principal); R22.41 Localized swelling, mass and lump, right lower limb
CPT/HCPCS: 36415; 80053; 85025; 93971; 99284; 96374; 96375 ×2; 96361; J1200; J2930

== ENCOUNTER → 2023-02-05 | Outpatient (CLI) | payer MEDICARE, OTHER ==
--- NOTE | 2023-02-05 10:23 | BD ---
EXAMINATION TYPE: Axial Bone Density DATE OF EXAM: 02/05/2023 CLINICAL HISTORY: 67 years old Female. ICD-10 CODE: M85.88 DISORDER OF BONE Height: 62.5 in Weight: 140 lbs FRAX RISK QUESTIONS: History of Fracture in Adulthood: lt wrist age 59, lt finger age 60 RISK FACTORS HISTORY OF: History of Wrist Fracture: lt wrist fx age 59 Active: yes Postmenopausal woman: age 52 MEDICATIONS: Additional Medications: calcium, vit d, fish oil EXAM MEASUREMENTS: Bone mineral densitometry was performed using the [employer] System. Bone mineral density as measured about the Lumbar spine is: ----- L1-L4(G/cm2): 1.029 T Score Values are as follows: ----- L1: -1.4 ----- L2: -1.2 ----- L3: -0.9 ----- L4: -1.5 ----- L1-L4: -1.3 Z Score Values are as follows: ----- L1: 0.3 ----- L2: 0.5 ----- L3: 0.8 ----- L4: 0.2 ----- L1-L4: 0.4 Bone mineral density has: Increased 2.5% since study of: 06/08/2020 Bone mineral density about the R hip (g/cm2): 0.690 Bone mineral density about the L hip (g/cm2): 0.776 T Score values are as follows: -----R Neck: -2.4 -----L Neck: -1.8 -----R Total: -2.5 -----L Total: -1.8 Z Score values are as follows: -----R Neck: -0.7 -----L Neck: -0.1 -----R Total: -1.1 -----L Total: -0.4 Bone mineral density has: Decreased -2.5% since study of: 06/08/2020 FRAX%s: The graph provided illustrates a 22.3% chance for a major osteoporotic fx and a 5.2% chance f or the hips probability for fx in 10 years time. IMPRESSION: Osteopenia (T Score between -2.5 and -1). There is slightly increased risk of fracture and the patient may be considered for treatment. Re-Screen 2-5 years. NOTE: T-SCORE=SD OF THE YOUNG ADULT MEAN.
== END | disposition home or self-care (01) ==
LOC: RADBDWWP 09:24
PROVIDERS: ATTEND Family Medicine
DX: M85.89 Other specified disorders of bone density and structure, multiple sites (principal)
CPT/HCPCS: 77080

== ENCOUNTER → 2023-04-25 | Outpatient (CLI) | payer MEDICARE, OTHER ==
--- NOTE | 2023-04-25 13:14 | P.PN ---
Subjective Progress Note Date: 04/25/23 fibrocystic breast changes 10-31-22 Valentine is a 66-year-old white female who underwent a bilateral screening mammogram on 1321. Some calcifications of concern were identified in the right breast and she underwent a right diagnostic mammogram on . This revealed intermediate concern suspicious finding group cluster calcifications in the middle position of the right breast. Stereotactic core biopsy was recommended. The patient has had a prior left breast stero tactic core biopsy in November 1999 which was benign. The patient had a stero-biopsy on 10-19-21 which was benign concordant. She had a repeat right breast mammogram on 04-23-22 which was BIRAD 2. She is not complaining of any new lumps masses or nodules of concern in either breast. Bilateral mammogram on 10-21-22 BIRAD 2 Brianna Risk : 10.2 % at 5 years life time risk: 29.4% Discussed chemoprevention and I have given her the option of seeing a medical oncologist to discuss this as well. At this time the patient has declined. Additionally I discussed her lifetime risk of 29.4% and the possibility of getting yearly breast MRIs. Again at this time she has declined. Her daughter had genetic testing and was (-). She is not aware of her sister having genetic testing. 04-25-23 The patient is not complaining of any new lumps masses or nodules of concern in either breast. Caffiene: 2 cups coffee in am nicotine: none chocolate: several times/week BCP: none hormones: none Family history: Breast cancer: daughter at age 35; double mastectomy, only cancer one side; metastatic cancer Sister: Premenopausal breast cancer; double mastectomy only one side cancer father: brain cancer mother: stomach cancer Hormonal History: menarche: 13 , breast fed: yes, age at first : 18 menopause: 5o BCP:none hormone: none Surgical history: Right hand trigger finger repair Bone shaving on toe on the left foot Medical History: none Social history: Nicotine: Negative Alcohol: Occasional Drugs:none - Constitutional Constitutional: Denies chills, Denies fever - EENT Eyes: denies blurred vision, denies pain Ears: deny: decreased hearing, tinnitus Ears, nose, mouth and throat: Denies headache, Denies sore throat - Breasts Breasts: bilateral: as per HPI - Cardiovascular Cardiovascular: Denies chest pain, Denies shortness of breath - Respiratory Respiratory: Denies cough - Gastrointestinal Gastrointestinal: Denies abdominal pain, Denies diarrhea, Denies nausea, Denies vomiting - Genitourinary (Female) Genitourinary: Denies dysuria, Denies hematuria - Menstruation Menstruation: Reports postmenopausal - Musculoskeletal Musculoskeletal: Denies myalgias - Integumentary Integumentary: Denies pruritus, Denies rash - Neurological Neurological: Denies numbness, Denies weakness - Psychiatric Psychiatric: Denies anxiety, Denies depression - Endocrine Endocrine: Denies fatigue, Denies weight change - Hematologic/Lymphatic Comment: none - Allergic/Immunologic Allergic/Immunologic: Reports as per HPI Past Medical History Additional Past Medical History / Comment(s): irregular bowel movements, History of Any Multi-Drug Resistant Organisms: None Reported Past Surgical History: Orthopedic Surgery Additional Past Surgical History / Comment(s): trigger finger rt middle finger, bone spur left great toe, Past Anesthesia/Blood Transfusion Reactions: Motion Sickness Past Psychological History: No Psychological Hx Reported Smoking Status: Former smoker Past Alcohol Use History: Occasional Past Drug Use History: None Reported - Past Family History Mother Family Medical History: Cancer Father Family Medical History: Cancer Daughter(s) Family Medical History: Cancer, Deep Vein Thrombosis (DVT) Medications and Allergies Home Medications Medication Instructions Recorded Confirmed Type No Known Home Medications 10/19/21 10/19/21 History Allergies Allergy/AdvReac Type Severity Reaction Status Date / Time No Known Allergies Allergy Verified 10/19/21 07:03 Objective - Constitutional General appearance: Present: cooperative - EENT Eyes: Present: EOMI ENT: Present: hearing grossly normal - Neck Neck: Present: normal ROM - Respiratory Respiratory: bilateral: CTA - Cardiovascular Rhythm: regular Heart sounds: normal: S1, S2 - Gastrointestinal General gastrointestinal: Present: soft - Integumentary Integumentary: Present: normal turgor - Musculoskeletal Musculoskeletal: Present: gait normal - Psychiatric Psychiatric: Present: A&O x's 3, appropriate affect, intact judgment & insight - Additional findings Additional findings: Breast examination: BRA: 34B inspection: Bilateral grade 3 ptosis Palpation: Right breast: Multi-positional exam dense breast no dominant masses or nodules of concern, fibrocystic changes Right axilla: No adenopathy of concern Left breast: Multi-positional exam dense breast fibrocystic changes no dominant masses or nodules of concern Left axilla: No adenopathy of concern Assessment and Plan Assessment: Impression: Fibrocystic breast changes Brianna risk evaluation states five-year risk is 10.2%; discussed chemoprevention risk reduction at this time the patient has declined Patient has declined MRI secondary to high lifetime risk of breast cancer Plan: Bilateral mammogram in 5 months, October 2023 with physician exam at that time If patient notes anything of concern she will call us sooner CC: DR. Gu Additional CC's: Rayna Gu
== END ==
LOC: WWCWWP 11:36
PROVIDERS: ATTEND Surgery
DX: N60.11 Diffuse cystic mastopathy of right breast (principal); Z80.3 Family history of malignant neoplasm of breast; Z87.891 Personal history of nicotine dependence; Z91.030 Bee allergy status

== ENCOUNTER → 2023-10-24 | Outpatient (CLI) | payer MEDICARE, OTHER ==
--- NOTE | 2023-10-28 11:08 | MM ---
Reason for Exam: Screening (asymptomatic). Last screening mammogram was performed 12 month(s) ago. Patient History: Menarche at age 11. First Full-Term at age 18. Postmenopausal. Patient has history of breast feeding. Core Biopsy on the Left side. 10/19/2021, Benign MG stereo VAD BX RT on the right side. 11/19/1999, Benign Stereotactic Core Biopsy on the left side. Sister had breast cancer, age 35. Daughter had breast cancer, age 35. Risk Values: Brianna 5 year model risk: 10.3%. NCI Lifetime model risk: 28.2%. Prior Study Comparison: 09/25/2021 Right Diagnostic Mammogram, [facility]. 04/23/2022 Right MG 3D diag mammo w/cad RT, [facility]. 10/21/2022 Bilateral MG 3D diag mammo w/cad HALLIE, [facility]. Tissue Density: The breasts are heterogeneously dense, which may obscure small masses. Findings: Analyzed By CAD. Bilateral breast biopsy clips. Right breast: There is no suspicious group of microcalcifications or new suspicious mass. Left breast: There is no suspicious group of microcalcifications or new suspicious mass. Overall Assessment: Negative, BI-RAD 1 Management: Screening Mammogram of both breasts in [address] [facility] will attempt to contact patient to return for supplemental views and ultrasound if indicated. Patient should continue monthly self-breast exams. A clinical breast exam by your physician is recommended on an annual basis. This exam should not preclude additional follow-up of suspicious palpable abnormalities. Note on Brianna scores and lifetime risk: 1. A Brianna score greater than 3% is considered moderate risk. If this is the case, consider specialist referral to assess eligibility for a risk reducing agent. 2. If overall lifetime risk for the development of breast cancer is 20% or higher, the patient may qualify for future screening with alternating mammogram and breast MRI. Electronically signed and approved by: Faizan Martinez DO
== END | disposition home or self-care (01) ==
LOC: RADMAMWWP 09:02
PROVIDERS: ATTEND Surgery
DX: Z12.31 Encounter for screening mammogram for malignant neoplasm of breast (principal); Z80.3 Family history of malignant neoplasm of breast; Z78.0 Asymptomatic menopausal state
CPT/HCPCS: 77063; 77067

== ENCOUNTER → 2024-03-12 | Outpatient (CLI) | payer MEDICARE, OTHER ==
[2024-03-12 11:47] VITALS: BP 157/82; PULSE 63; RESP 16; TEMP 98.4
--- NOTE | 2024-03-12 12:30 | P.PN ---
Subjective Progress Note Date: 03/12/24 Principal diagnosis: fibrocystic breast disease/high risk 03-12-24 fibrocystic breast changes 10-31-22 Valentine is a 66-year-old white female who underwent a bilateral screening mammogram on 1321. Some calcifications of concern were identified in the right breast and she underwent a right diagnostic mammogram on . This revealed intermediate concern suspicious finding group cluster calcifications in the middle position of the right breast. Stereotactic core biopsy was recommended. The patient has had a prior left breast stero tactic core biopsy in November 1999 which was benign. The patient had a stero-biopsy on 10-19-21 which was benign concordant. She had a repeat right breast mammogram on 04-23-22 which was BIRAD 2. She is not complaining of any new lumps masses or nodules of concern in either breast. Bilateral mammogram on 10-21-22 BIRAD 2 Brianna Risk : 10.2 % at 5 years life time risk: 29.4% Discussed chemoprevention and I have given her the option of seeing a medical oncologist to discuss this as well. At this time the patient has declined. Additionally I discussed her lifetime risk of 29.4% and the possibility of getting yearly breast MRIs. Again at this time she has declined. Her daughter had genetic testing and was (-). She is not aware of her sister having genetic testing. 04-25-23 The patient is not complaining of any new lumps masses or nodules of concern in either breast. 03-12-24 bilateral mammogram on 10-24-23 personally interpreted BIRAD 1 Michelle has not noted any new lumps masses or nodules of concern in either breast. She is uncertain of any genetic testing among family members that have had cancer. In the past we have discussed chemoprophylaxis or alternating with mammogram and MRI and she is not interested. We have also discussed genetic counseling/testing and the patient is not interested at this time. Brianna Risk: 10.3% lifetime risk: 28.2% Caffiene: 2 cups coffee in am nicotine: none chocolate: several times/week BCP: none hormones: none Family history: Breast cancer: daughter at age 35; double mastectomy, only cancer one side; metastatic cancer Sister: Premenopausal breast cancer; double mastectomy only one side cancer father: brain cancer mother: stomach cancer Hormonal History: menarche: 13 , breast fed: yes, age at first : 18 menopause: 5o BCP:none hormone: none Surgical history: Right hand trigger finger repair Bone shaving on toe on the left foot Medical History: none Social history: Nicotine: Negative Alcohol: Occasional Drugs:none - Constitutional Constitutional: Denies chills, Denies fever - EENT Eyes: denies blurred vision, denies pain Ears: deny: decreased hearing, tinnitus Ears, nose, mouth and throat: Denies headache, Denies sore throat - Breasts Breasts: bilateral: as per HPI - Cardiovascular Cardiovascular: Denies chest pain, Denies shortness of breath - Respiratory Respiratory: Denies cough - Gastrointestinal Gastrointestinal: Denies abdominal pain, Denies diarrhea, Denies nausea, Denies vomiting - Genitourinary (Female) Genitourinary: Denies dysuria, Denies hematuria - Menstruation Menstruation: Reports postmenopausal - Musculoskeletal Musculoskeletal: Denies myalgias - Integumentary Integumentary: Denies pruritus, Denies rash - Neurological Neurological: Denies numbness, Denies weakness - Psychiatric Psychiatric: Denies anxiety, Denies depression - Endocrine Endocrine: Denies fatigue, Denies weight change - Hematologic/Lymphatic Comment: none - Allergic/Immunologic Allergic/Immunologic: Reports as per HPI Past Medical History Additional Past Medical History / Comment(s): irregular bowel movements, History of Any Multi-Drug Resistant Organisms: None Reported Past Surgical History: Orthopedic Surgery Additional Past Surgical History / Comment(s): trigger finger rt middle finger, bone spur left great toe, Past Anesthesia/Blood Transfusion Reactions: Motion Sickness Past Psychological History: No Psychological Hx Reported Smoking Status: Former smoker Past Alcohol Use History: Occasional Past Drug Use History: None Reported - Past Family History Mother Family Medical History: Cancer Father Family Medical History: Cancer Daughter(s) Family Medical History: Cancer, Deep Vein Thrombosis (DVT) Medications and Allergies Home Medications Medication Instructions Recorded Confirmed Type No Known Home Medications 10/19/21 10/19/21 History Allergies Allergy/AdvReac Type Severity Reaction Status Date / Time No Known Allergies Allergy Verified 10/19/21 07:03 Objective - Vital Signs Vital signs: Vital Signs Temp 98.4 F 03/12/24 11:45 Pulse 63 03/12/24 11:45 Resp 16 03/12/24 11:45 BP 157/82 10/04/24 11:45 Pulse Ox 97 03/12/24 11:45 FiO2 Intake & Output 03/11/24 03/12/24 03/12/24 18:59 06:59 18:59 Weight 61.689 kg - Constitutional General appearance: Present: cooperative - EENT Eyes: Present: EOMI ENT: Present: hearing grossly normal - Neck Neck: Present: normal ROM - Respiratory Respiratory: bilateral: CTA - Cardiovascular Rhythm: regular Heart sounds: normal: S1, S2 - Integumentary Integumentary: Present: normal turgor - Musculoskeletal Musculoskeletal: Present: gait normal - Psychiatric Psychiatric: Present: A&O x's 3, appropriate affect, intact judgment & insight - Additional findings Additional findings: Breast examination: BRA: 34B inspection: Bilateral grade 3 ptosis Palpation: Right breast: Multi-positional exam dense breast no dominant masses or nodules of concern, fibrocystic changes Right axilla: No adenopathy of concern Left breast: Multi-positional exam dense breast fibrocystic changes no dominant masses or nodules of concern Left axilla: No adenopathy of concern Assessment and Plan Assessment: Impression: Fibrocystic breast changes Brianna risk evaluation states five-year risk is 10.3%; discussed chemoprevention risk reduction at this time the patient has declined lifetime risk: 28.2 Patient has declined MRI which was offered and discussed secondary to high lifetime risk of breast cancer Patient declined meeting with a genetic counselor or genetic testing Plan: Bilateral mammogram in October 2023 with examination Patient will do self breast exams and if she notes anything will call us sooner If patient notes anything of concern she will call us sooner CC: DR. Gu
== END ==
LOC: WWCWWP 11:37
PROVIDERS: ATTEND Surgery
DX: Z12.31 Encounter for screening mammogram for malignant neoplasm of breast

== ENCOUNTER → 2024-10-25 | Outpatient (CLI) | payer MEDICARE, OTHER ==
--- NOTE | 2024-10-25 09:03 | MM ---
Reason for Exam: Screening (asymptomatic). Last screening mammogram was performed 12 month(s) ago. Patient History: Menarche at age 11. First Full-Term at age 18. Postmenopausal. Patient has history of breast feeding. Core Biopsy on the Left side. 10/19/2021, Benign MG stereo VAD BX RT on the right side. 11/19/1999, Benign Stereotactic Core Biopsy on the left side. Sister had breast cancer, age 35. Daughter had breast cancer, age 35. Risk Values: Brianna 5 year model risk: 10.3%. NCI Lifetime model risk: 27.1%. Prior Study Comparison: 04/23/2022 Right MG 3D diag mammo w/cad RT, [facility]. 10/21/2022 Bilateral MG 3D diag mammo w/cad HALLIE, [facility]. 10/24/2023 Bilateral MG 3D screening mammo w/cad, [facility]. Tissue Density: The breasts are heterogeneously dense, which may obscure small masses. Findings: Analyzed By CAD. Bilateral breast biopsy clips. Right breast: There is no suspicious group of microcalcifications or new suspicious mass. Left breast: There is no suspicious group of microcalcifications or new suspicious mass. Overall Assessment: Benign, BI-RAD 2 Management: Screening Mammogram of both breasts in [address] [facility] will attempt to contact patient to return for supplemental views and ultrasound if indicated. Patient should continue monthly self-breast exams. A clinical breast exam by your physician is recommended on an annual basis. This exam should not preclude additional follow-up of suspicious palpable abnormalities. Note on Brianna scores and lifetime risk: 1. A Brianna score greater than 3% is considered moderate risk. If this is the case, consider specialist referral to assess eligibility for a risk reducing agent. 2. If overall lifetime risk for the development of breast cancer is 20% or higher, the patient may qualify for future screening with alternating mammogram and breast MRI. [facility], , 10/25/2024 9:00 AM. Electronically signed and approved by: Faizan Martinez DO
== END | disposition home or self-care (01) ==
LOC: RADMAMWWP 08:21
PROVIDERS: ATTEND Surgery
DX: Z12.31 Encounter for screening mammogram for malignant neoplasm of breast (principal); R92.333 Mammographic heterogeneous density, bilateral breasts; Z78.0 Asymptomatic menopausal state; Z80.3 Family history of malignant neoplasm of breast
CPT/HCPCS: 77063; 77067